=== PATIENT | female | born 1950 | race Caucasian/White ===

== ENCOUNTER 2019-05-14 04:17 | Emergency (ER) | payer MEDICARE, OTHER ==
[~2019-05-14] VITALS: Ht 177.8 cm; Wt 79.4 kg
[2019-05-14 05:40] LABS: Calcium, Ionized (POC) 1.19 mmol/L (1.10-1.46); Chloride (POC) 105 mmol/L (98-108); Creatinine (POC) 0.7 mg/dL (0.6-1.0); Glucose (ISTAT POC) 108 mg/dL (70-99); Hemoglobin (POC) 14.6 g/dL (12.0-16.0); Potassium (POC) 3.9 mmol/L (3.5-5.5); Sodium (POC) 141 mmol/L (135-148); Total CO2 (POC) 27 mmol/L (21-32)
[2019-05-14] MEDS ORDERED: Synthroid137 MCG (06:43)
[2019-05-14] MEDS ORDERED: FENO54 (06:44)
[2019-05-14] MEDS ORDERED: ERGO400 (06:44)
[2019-05-14] MEDS ORDERED: MIRALAX17 GM (06:45)
[2019-05-14] MEDS ORDERED: BOTOX COSMETIC100 U (06:45)
[2019-05-14] MEDS ORDERED: SOOLANTRA30 GM (06:46)
[2019-05-14] MEDS ORDERED: Sudogest60 MG (06:46)
[2019-05-14] MEDS ORDERED: GABA300 (06:46)
[2019-05-14] MEDS ORDERED: DIAZ2 (06:46)
[2019-05-14] MEDS ORDERED: Ativan1 MG PO (08:22)
== END 2019-05-14 08:55 | disposition home or self-care (01) ==
LOC: ER 04:17
PROVIDERS: Emergency Medicine
DX: J38.5 Laryngeal spasm (principal); E03.9 Hypothyroidism, unspecified; Z88.5 Allergy status to narcotic agent; Z88.1 Allergy status to other antibiotic agents; Z88.8 Allergy status to other drugs, medicaments and biological substances; Z79.899 Other long term (current) drug therapy
CPT/HCPCS: 70491; 80047; 85014; 96374-59; 99284-25; J2060; Q9967